=== PATIENT | female | born 1955 | race Caucasian/White ===

== ENCOUNTER → 2019-03-09 | Outpatient (CLI) | payer BC | LOC: RAD 15:23 | PROVIDERS: ATTEND Obstetrics & Gynecology | DX: Z12.31 Encounter for screening mammogram for malignant neoplasm of breast (principal) | CPT/HCPCS: 77067 ==

== ENCOUNTER → 2019-07-11 | Outpatient (CLI) | payer BC | LOC: ONC 12:57 | PROVIDERS: ATTEND Nurse Practitioner Adult Health | DX: Z71.83 Encounter for nonprocreative genetic counseling (principal) | CPT/HCPCS: 99213 ==

== ENCOUNTER → 2020-04-29 | Outpatient (CLI) | payer BC ==
--- NOTE | 2020-04-29 10:40 | Diagnostic Imaging Report ---
INDICATION: Routine screening. COMPARISON: 03/09/2019. TECHNIQUE: 2D and 3D bilateral screening mammography was performed with CAD. FINDINGS: Both breasts are heterogeneously dense, limiting the sensitivity of mammography. Innumerable calcifications are scattered throughout both breasts, limiting evaluation. No dominant mass or malignant appearing microcalcifications are identified. The axillae are unremarkable. IMPRESSION: No mammographic features suspicious for malignancy are identified. ACR BI-RADS Category 2: Benign findings. Result letter will be mailed to the patient. Note: At least 10% of breast cancer is not imaged by mammography. Dictated by: Dictated on workstation # [id number]
== END ==
LOC: RAD 07:21
PROVIDERS: ATTEND Obstetrics & Gynecology
DX: Z12.31 Encounter for screening mammogram for malignant neoplasm of breast (principal)
CPT/HCPCS: 77063; 77067

== ENCOUNTER → 2021-05-14 | Outpatient (CLI) | payer BC ==
--- NOTE | 2021-05-14 08:56 | Diagnostic Imaging Report ---
INDICATION: Routine screening. COMPARISON: 04/29/2020 and 03/09/2019. TECHNIQUE: 2D and 3D bilateral screening mammography was performed with CAD. FINDINGS: Both breasts are heterogeneously dense, limiting the sensitivity of mammography. Calcifications scattered throughout both breasts are again noted and appear similar to the prior study. No spiculated mass is identified. No definite malignant-appearing microcalcifications are seen. The axillae are unremarkable. IMPRESSION: No mammographic features suspicious for malignancy are identified. ACR BI-RADS Category 2: Benign findings. Result letter will be mailed to the patient. Note: At least 10% of breast cancer is not imaged by mammography. Dictated by: Dictated on workstation # [id number]
== END ==
LOC: RAD 07:30
PROVIDERS: ATTEND Obstetrics & Gynecology
DX: Z12.31 Encounter for screening mammogram for malignant neoplasm of breast (principal)
CPT/HCPCS: 77063; 77067

== ENCOUNTER 2022-06-12 05:36 | Outpatient (CLI) | payer BC ==
[~2022-06-12] VITALS: Ht 165.1 cm; Wt 68.1 kg
== END 2022-06-12 15:45 | disposition home or self-care (01) ==
LOC: PREOP 05:36
PROVIDERS: ATTEND Specialist
DX: Z01.818 Encounter for other preprocedural examination (principal)

== ENCOUNTER 2022-06-19 08:46 | Day surgery (SDC) | payer BC ==
[~2022-06-19] VITALS: Ht 165.1 cm; Wt 68.1 kg
[2022-06-19 09:05] VITALS: BP 135/81
[2022-06-19] MEDS ORDERED: PILOCARPINE 4% OPHTH SOLN (ISOPTO CARPINE) 15 ML BTL OP ONE (09:15)
[2022-06-19] MEDS ORDERED: TIMOLOL MALEATE 0.5% 5 ML (TIMOPTIC) BTL OU ONE (09:15)
[2022-06-19] MEDS ORDERED: TETRACAINE 0.5% OPHTH SOLN 4 ML BTL (SINGLE DOSE ONLY) OU ONE (09:15)
--- NOTE | 2022-06-19 09:36 | Ophthalmologist Pre-Op Note ---
Pre-Operative Progress Note H&P Reviewed The H&P was reviewed, patient examined and no changes noted. Date H&P Reviewed: Jun 19, 2022 Time H&P Reviewed: 09:36 Pre-Op Dx Secondary Cataract, Right Eye JADA OSPINA MD Jun 19, 2022 09:36
--- NOTE | 2022-06-19 09:58 | Ophthalmology Operative Report ---
YAG Capsulotomy PREOPERATIVE DIAGNOSIS: Secondary Cataract Left Eye POSTOPERATIVE DIAGNOSIS: Secondary Cataract Left Eye PROCEDURE: YAG Capsulotomy, left eye SURGEON: Evan Ospina ANESTHESIA: Topical anesthesia COMPLICATIONS: None ESTIMATED BLOOD LOSS: Minimal DESCRIPTION OF PROCEDURE: After proper informed consent was obtained, the patient's, a 66 female left eye received one drop of Tropicamide and one drop of Tetracaine. The patient was then placed at the YAG laser and using a power of [3.8 ] millijoules and [ 27] bursts were used to fashion a central capsulotomy. The patient tolerated the procedure well without complications. EVAN OSPINA MD Jun 19, 2022 09:58
[2022-06-19] MEDS ORDERED: TROPICAMIDE 1% OPH SOLN (MYDRIACYL) 15 ML BTL OU PRN (10:00)
[2022-06-19] MEDS ORDERED: PHENYLEPHRINE 10% OPHTH (NEO-SYN) 5 ML BTL OU PRN (10:00)
== END 2022-06-19 09:51 | disposition home or self-care (01) ==
LOC: SDC 08:46
PROVIDERS: ATTEND Specialist
DX: H26.40 Unspecified secondary cataract (principal)

== ENCOUNTER → 2023-05-10 | Outpatient (CLI) | payer BC ==
--- NOTE | 2023-05-10 11:52 | Diagnostic Imaging Report ---
INDICATION: Routine screening. COMPARISON: 05/14/2021 and 04/29/2020. TECHNIQUE: 2D and 3D bilateral screening mammography was performed with CAD. FINDINGS: Both breasts are heterogeneously dense, limiting the sensitivity of mammography. Innumerable calcifications are scattered throughout both breasts, limiting evaluation. No mass is identified. No definite malignant-appearing microcalcifications are seen. The axillae are unremarkable. IMPRESSION: No mammographic features suspicious for malignancy are identified. ACR BI-RADS Category 2: Benign findings. Result letter will be mailed to the patient. Note: At least 10% of breast cancer is not imaged by mammography. Dictated by: Dictated on workstation # [id number]
== END ==
LOC: RAD 08:15
PROVIDERS: ATTEND Nurse Practitioner Women's Health
DX: Z12.31 Encounter for screening mammogram for malignant neoplasm of breast (principal)
CPT/HCPCS: 77063; 77067